=== PATIENT | female | born 1970 | race Caucasian/White ===

== ENCOUNTER 2021-12-02 12:57 | Emergency (ER) | payer SELFPAY ==
[~2021-12-02] VITALS: Ht 162.6 cm; Wt 68.0 kg
[2021-12-02 13:06] VITALS: BP 118/66
--- NOTE | 2021-12-02 13:06 | NUR ---
"I have a problem with urine-cloudy its been going on x10d"
[2021-12-02] MEDS ORDERED: CEPH250C PO (13:26)
[2021-12-02] MEDS ORDERED: CEFTRIAXONE 1 G VIAL ONE (13:29)
[2021-12-02] MEDS ORDERED: LIDOCAINE /MPF 1% VIAL 5 ML VIAL ONE (13:29)
[2021-12-02] MEDS ORDERED: CEFTRIAXONE 1 G VIAL IM ONE (13:30)
--- NOTE | 2021-12-02 13:38 | NUR ---
Patient discharged to home in stable condition. Written and verbal after care instructions given. Patient verbalizes understanding of instruction.
[2021-12-02 14:43] LABS: BILIRUBIN,URINE NEGATIVE (NEGATIVE); COLOR,URINE YELLOW (YELLOW); LEUKOCYTE ESTERASE ,URINE MODERATE (NEGATIVE); NITRITE, URINE NEGATIVE (NEGATIVE); PROTEIN,URINE NEGATIVE (NEGATIVE); UGLUCOSE NEGATIVE (NEGATIVE); UROBILINOGEN,URINE 0.2 EU/dL (0.2)
[2021-12-02 15:05] LABS: WBC,URINE TOO NUMEROUS TO COUN /HPF (0-3)
[2021-12-02 15:06] LABS: BACTERIA,URINE 3+ /HPF (None Seen); SQUAMOUS EPITHELIAL CELL,UR 0-2 /HPF (None Seen)
== END 2021-12-02 13:38 | disposition home or self-care (01) ==
LOC: ER 13:01
DX: N39.0 Urinary tract infection, site not specified (principal)
CPT/HCPCS: 81001; 87077; 87086; 87186; 96372; 99283; J0696; J3490